=== PATIENT | female | born 1975 | race Caucasian/White ===

== ENCOUNTER 2022-05-07 11:50 | Inpatient (IN) | payer BC ==
[~2022-05-07] VITALS: Ht 157.5 cm; Wt 56.7 kg
[2022-05-07] MEDS ORDERED: FLUT1DIS27 INH (12:07)
[2022-05-07 12:11] LABS: *BILIRUBIN,URIN NEGATIVE (NEGATIVE); *CLARITY,URINE CLEAR (CLEAR); *COLOR,URINE YELLOW (YELLOW); *KETONES,URINE NEGATIVE (NEGATIVE); *UROBILINOGEN,URINE 0.2 E.U./dl (NORMAL); LEUKOCYTE ESTERASE ,URINE NEGATIVE (NEGATIVE); NITRITE, URINE NEGATIVE (NEGATIVE); PH,URINE 6.5 (5.0-8.0); UGLUCOSE NEGATIVE (NEGATIVE)
[2022-05-07 12:17] LABS: HEMATOCRIT 37.6 % (31.2-41.9); MEAN CORPUSCULAR HEMOGLOBIN 31.4 uug (24.7-32.8); MEAN CORPUSCULAR VOLUME 93.8 fL (75.5-95.3); PLATELET COUNT (AUTO) 229 K/uL (179-408)
[2022-05-07 12:28] LABS: CREATININE 0.8 mg/dL (0.6-1.3)
[2022-05-07 12:34] LABS: BILIRUBIN,DIRECT 0.2 mg/dL (0.0-0.2); BILIRUBIN,TOTAL 1.2 mg/dL (0.2-1.0); TOTAL PROTEIN, SERUM 7.4 g/dL (6.4-8.2)
[2022-05-07 12:37] LABS: *BLOOD, URINE TRACE (NEGATIVE)
[2022-05-07 12:43] LABS: *URINE HCG, QUAL NEGATIVE (NEGATIVE)
[2022-05-07] MEDS ORDERED: IV NORMAL SALINE 1000 ML BAG IV ONE (12:45)
[2022-05-07] MEDS ORDERED: MORPHINE SULFATE 4 MG/1 ML DISP.SYRIN IV ONE ×2 (12:45→14:45)
[2022-05-07] MEDS ORDERED: ONDANSETRON 4 MG/2 ML VIAL IV ONE ×2 (12:45→14:45)
--- NOTE | 2022-05-07 12:50 | NUR ---
Left for CT Scan
--- NOTE | 2022-05-07 13:15 | NUR ---
Back from scan
[2022-05-07] MEDS ORDERED: ONDANSETRON 4 MG/2 ML VIAL ONE ×2 (13:29→14:50)
[2022-05-07] MEDS ORDERED: MORPHINE SULFATE 4 MG/1 ML DISP.SYRIN ONE ×2 (13:30→14:50)
--- NOTE | 2022-05-07 13:38 | NUR ---
1)Iv fluids running as prescribed 2) IV Morphine and Zofran admnistered and await effect 3) moderate distress
--- NOTE | 2022-05-07 13:41 | NUR ---
Patient informed nurse and MD that urine has been sent
[2022-05-07] MEDS: PIPERACILLIN SODIUM/TAZOBACTAM 3.375 G in IV DEXTROSE 5% 50 ML IV ONE ×2 (14:00→14:25)
--- NOTE | 2022-05-07 14:02 | NUR ---
Patient reviewed MD and plan is: 1)NPO 2) Iv fluids 3) Zosyn 4) Antimetics 5) Refer to surgeon for surgery today
[2022-05-07 14:06] VITALS: BP 99/57
--- NOTE | 2022-05-07 14:07 | NUR ---
Called and spoke to Leigh Allocated Room 330 when surgeon accepts patient
[2022-05-07] MEDS ORDERED: PIPERACILLIN SODIUM/TAZO 3.375 GM VIAL ONE (14:13)
--- NOTE | 2022-05-07 14:29 | NUR ---
1) Iv ATB in progress. 2) EKG completed as prescribed by
--- NOTE | 2022-05-07 15:19 | NUR ---
Administered another dose of antimetic and analgesia as prescribed and await effect
--- NOTE | 2022-05-07 17:30 | NUR ---
Pt. admitted from ER. Noted to be stable upon the admission. Alert and oriented x4. Able to make the need known. Able to ambulate. Admitted for abdominal pain. No acute distress noted. Belonging list done and included in pt. chart. Call light within reach. Will keep monitoring the patient.
[2022-05-07] MEDS ORDERED: ACETAMINOPHEN 325 MG TABLET PO PRN (18:15)
[2022-05-07] MEDS ORDERED: REMEDY ESSENTIAL ZINC PASTE 113 GM TP PRN (18:15)
[2022-05-07] MEDS ORDERED: ZOLPIDEM 5 MG TABLET PO PRN (18:15)
[2022-05-07] MEDS ORDERED: IV D5 1/2 NS 1000 ML 1,000 ML IV PRN (18:15)
[2022-05-07] MEDS ORDERED: ONDANSETRON 4 MG/2 ML VIAL IV PRN (18:15)
[2022-05-07] MEDS ORDERED: FENTANYL CITRATE 100 MCG/2 ML AMPUL ONE (19:09)
[2022-05-07] MEDS ORDERED: MIDAZOLAM HCL 2 MG/2 ML VIAL ONE (19:09)
[2022-05-07] MEDS ORDERED: LIDOCAINE-MPF 2% 5 ML VIAL ONE (19:45)
[2022-05-07] MEDS ORDERED: DEXAMETHASONE SOD PHOSPHATE 4 MG INJ ONE (19:45)
[2022-05-07] MEDS ORDERED: PROPOFOL 200 MG/20 ML BOTTLE ONE (19:45)
[2022-05-07] MEDS ORDERED: CEFAZOLIN 1 G VIAL ONE (19:45)
[2022-05-07] MEDS ORDERED: BUPIVACAINE/EPI PF 0.5% 10 ML VIAL ONE (19:57)
--- NOTE | 2022-05-07 19:58 | NUR ---
PT TAKEN DOWN TO SURGERY BY OR NURSE PT IS ALERT AND ORIENTED NO SIGNS OF DISTRESS NOTED.
[2022-05-07] MEDS ORDERED: HYDROMORPHONE 1 MG/1 ML DISP.SYRIN ONE (20:54)
[2022-05-07 21:02] LABS: RBC,URINE 0-3 /HPF (0-3)
[2022-05-07 21:03] LABS: WBC,URINE 0-3 /HPF (0-3)
--- NOTE | 2022-05-07 22:00 | NUR ---
PT BACK FROM SURGERY AT 2200 CHECKED SURGICAL SITE HAS THREE PUNCTURE LOWER QUADRANT WITH STERI STRIPS AREA TINGED OF BLOOD. PT DENIES PAIN AT THIS AFTERWARD TOOK VITALS TEMP SLIGHTLY ELEVATED 99.1 APPLIED COLD TOWEL WILL REASSESS PATIENT. PT HAS IVF D51/2 NS INFUSING AT 75ML AND HOUR TOLERATING WELL NO SIGNS OF INFILTRATION NOTED.
[2022-05-07 22:04] VITALS: BP 97/58
[2022-05-08] MEDS ORDERED: PIPERACILLIN/TAZOBACTAM/D5W 50 ML IV ONE ×2 (00:25→05:24)
[2022-05-08] MEDS: MORPHINE SULFATE 4 MG/1 ML DISP.SYRIN IV PRN ×2 (02:19→08:31)
--- NOTE | 2022-05-08 03:45 | NUR ---
PT REQUESTED MORPHINE 4MG FOR PAIN FROM SURGICAL SITE. PT REASSESS IN 30 MINUTES SLEEPING NO SIGNS OF DISTRESS NOTED.
[2022-05-08 04:00] VITALS: BP 93/51
[2022-05-08] MEDS: PIPERACILLIN SODIUM/TAZOBACTAM 3.375 G in IV DEXTROSE 5% 50 ML IV SCH ×3 (05:54)
--- NOTE | 2022-05-08 07:18 | NUR ---
Received pt. in bed and noted pt. being awake and crying and nurse asked if everything is ok and pt. stated "surgery went ok and I would like to be discharge today".
[2022-05-08 07:42] LABS: CREATININE 0.8 mg/dL (0.6-1.3); MAGNESIUM 2.1 mg/dL (1.8-2.4); PHOSPHOROUS 4.4 mg/dL (2.5-4.9); POTASSIUM 4.3 mmol/L (3.5-5.1)
[2022-05-08 07:45] LABS: HEMATOCRIT 31.5 % (31.2-41.9); MEAN CORPUSCULAR VOLUME 93.7 fL (75.5-95.3); PLATELET COUNT (AUTO) 191 K/uL (179-408)
[2022-05-08] MEDS ORDERED: ONDANSETRON 4 MG/2 ML VIAL IV PRN (10:15)
[2022-05-08] MEDS ORDERED: HYDROMORPHONE 1 MG/1 ML DISP.SYRIN IV PRN (10:15)
--- NOTE | 2022-05-08 10:17 | NUR ---
Received a call from Dr. Low Craig and received verbal order for Dilaudid 2mg every 2hours and Gabapentin 100mg 3 times a day. Order was forwarded to Dr. Dai and he placed new order.
--- NOTE | 2022-05-08 11:20 | NUR ---
CERTIFIED REGISTERED DENTAL ASSISTANT reported that pt. has low BP. Nurse went to assess the resident and rechecked the BP and noted BP 87/46. Reported to Dr. Alba and received order to administer NS 1000L bolus x1. Order was followed and pt. was kept monitored.
[2022-05-08] MEDS ORDERED: IV NS 1000 ML 1,000 ML IV ONE (11:45)
[2022-05-08 12:00] VITALS: BP 92/43
[2022-05-08] MEDS ORDERED: PIPERACILLIN SODIUM/TAZOBACTAM 3.375 G in IV DEXTROSE 5% 50 ML IV SCH (12:00)
[2022-05-08] MEDS ORDERED: PIPERACILLIN SODIUM/TAZOBACTAM 3.375 G in IV DEXTROSE 5% 100 ML IV SCH (14:00)
[2022-05-08 16:00] VITALS: BP 98/59
--- NOTE | 2022-05-08 17:21 | NUR ---
Pt. discharged home. All personal belonging returned to the patient. Noted to be stable during the shift. Skin assessment done and pictures included in pt. chart. Pt. was picked up by her . MANAGEMENT [employer] INTERN provided wheelchair and wheeled the pt. out.
== END 2022-05-08 17:10 | disposition home or self-care (01) | DRG 343 ==
LOC: ER 11:50 → MEDSURG3 15:36
PROVIDERS: ADMIT Nurse Practitioner Acute Care; ATTEND Nurse Practitioner Acute Care
PROC: 0DTJ4ZZ Resection of Appendix, Percutaneous Endoscopic Approach (ICD-10-PCS; principal; 2022-05-07)
DX: K35.30 Acute appendicitis with localized peritonitis, without perforation or gangrene (principal); J45.909 Unspecified asthma, uncomplicated; K66.0 Peritoneal adhesions (postprocedural) (postinfection); D72.829 Elevated white blood cell count, unspecified; E80.6 Other disorders of bilirubin metabolism; Z20.822 Contact with and (suspected) exposure to COVID-19
CPT/HCPCS: 36415; 83690; 83735; 84100; 84703; 85025; 85730; 87040; A4663; G0378; J0690; J1100; J1170; J2250; J2270; J2405; J2543; J3010; J3490; J7040